=== PATIENT | female | born 1975 | race Caucasian/White ===

== ENCOUNTER 2019-09-28 18:21 | Emergency (ER) | payer OTHER, SELFPAY ==
--- NOTE | ~2019-09-28 | XR_ITS ---
XR ankle LT min 3V 09/28/2019 19:03 INDICATION: Left ankle pain and swelling PROCEDURE: 4 views left ankle COMPARISON: No prior studies for comparison. FINDINGS: There is a nondisplaced fracture, likely originating from the calcaneus. There is adjacent soft tissue swelling. No foreign bodies. IMPRESSION: 1: Acute nondisplaced fracture, likely originating from the calcaneus. Adjacent soft tissue swelling. Reviewed, dictated and finalized at location A.
--- NOTE | 2019-09-28 18:36 | ED.LOWEXIN ---
HPI - Extremity Injury (Lower) General Chief Complaint: Extremity Injury, Lower Stated Complaint: fell left ankle Time Seen by Provider: 09/28/19 18:36 Source: patient and RN notes reviewed History of Present Illness HPI Narrative: Patient is a 44-year-old female who presents the urgent care with complaints of left ankle pain and swelling. Patient states that her house is under construction and she was trying to walk after work this evening, stepping on a paint roller, and rolling her left ankle. Patient believes she broke something . Patient appears to be under the influence. Denies any use of pain medication prior to arrival. Patient is tearful. No other acute complaints. No acute distress noted. Patient had a plan of care. Related Data Home Medications Medication Instructions Recorded Confirmed alprazolam [Xanax] 1 mg PO TID 09/28/19 09/28/19 armodafinil 250 mg PO BID 09/28/19 09/28/19 bupropion HCl [Wellbutrin XL] 1 mg PO DAILY 09/28/19 09/28/19 norgestimate-ethinyl estradiol 1 tablet PO DAILY 09/28/19 09/28/19 [Tri-Sprintec (28)] Allergies Allergy/AdvReac Type Severity Reaction Status Date / Time acetaminophen Allergy Unknown Verified 09/28/19 18:53 HYDROCODONE BIT Allergy Unknown Uncoded 09/28/19 18:53 PENICILLIN Allergy Unknown Uncoded 09/28/19 18:53 Review of Systems Review of Systems: Narrative: CONSTITUTIONAL: Denies fever, chills, or sweats. EYES: Denies visual changes, redness, or discharge. ENT: Denies rhinorrhea, congestion, sore throat, or otalgia. CARDIOVASCULAR: Denies chest pain, palpitations, or edema. RESPIRATORY: Denies cough or dyspnea. GASTROINTESTINAL: Denies abdominal pain, nausea, vomiting, or diarrhea. GENITOURINARY: Denies dysuria or hematuria. SKIN: Denies rash or itching. MUSCULOSKELETAL: Reports of left ankle/foot pain due to fall NEUROLOGIC: Denies headache, numbness, or weakness. All other systems reviewed are negative, except as documented in HPI. [facility] Social History Social History Gender identity (if verbalized by the patient): Female Comments At the time of my signature, I reviewed and agree with the nursing past medical, surgical, social, and family history. There is no relevant family history pertinent to the patient complaint. Exam Narrative: Exam Narrative: GENERAL: This is a well-nourished, well-developed patient, in no apparent distress. HEAD: normocephalic, atraumatic. EYES: PERRL. Sclera clear/white. Vision is grossly intact. EARS: External ears normal NOSE: External nose normal with no obvious nasal discharge, nares without redness, no rhinorrhea. THROAT: Mucous membranes moist NECK: Neck supple SKIN: warm, intact with no suspicious lesions or rash, good texture and turgor. NEURO: awake, alert, and oriented to person, place and time. There were no obvious focal neurologic abnormalities. EXTREMITIES: Positive strong left pedal pulse with capillary refill less than 2 seconds. Very mild to absent edema noted on the dorsal anterior aspect of the malleolus without ecchymosis or erythema. No obvious deformity or fracture noted. Range of motion is limited, due to pain. Course Vital Signs Vital signs: Vital Signs Temperature 98.1 F 09/28/19 18:40 Pulse Rate 114 H 09/28/19 18:40 Respiratory Rate 18 09/28/19 18:40 Blood Pressure 141/97 H 09/28/19 18:40 Pulse Oximetry 98 09/28/19 18:40 Temperature 98.1 F 09/28/19 18:40 Pulse Rate 114 H 09/28/19 18:40 Respiratory Rate 18 09/28/19 18:40 Blood Pressure 141/97 H 09/28/19 18:40 Pulse Oximetry 98 09/28/19 18:40 Reviewed?patient is informed that they may have pre-hypertension or hypertension based on a blood pressure reading in the department. I recommend the patient call the primary care provider listed on their discharge instructions or a physician of their choice this week to arrange follow-up for further evaluation of possible pre-hypertension or hypertension. Procedures Ort
[2019-09-28 18:40] VITALS: BP 141/97; PULSE 114; RESP 18; TEMP 36.7; O2SAT 98
--- NOTE | 2019-09-28 20:02 | PC.NURSE ---
1836- Pt smells of alcohol.
== END 2019-09-28 20:03 | disposition home or self-care (01) ==
PROVIDERS: Emergency Provider Nurse Practitioner Family; PCP Family Medicine
DX: S92.002A Unspecified fracture of left calcaneus, initial encounter for closed fracture (principal); F41.9 Anxiety disorder, unspecified; F32.9 Major depressive disorder, single episode, unspecified; R03.0 Elevated blood-pressure reading, without diagnosis of hypertension; X50.9XXA Other and unspecified overexertion or strenuous movements or postures, initial encounter
CPT/HCPCS: 29515; 73610; 99204; G0463

== ENCOUNTER 2022-03-04 02:58 | Emergency (ER) | payer OTHER, SELFPAY ==
--- NOTE | ~2022-03-04 | CT_ITS ---
Clinical Indication: Chest pain, dissection CT angiogram of the Chest, Abdomen, and Pelvis with Contrast: Technique: Contiguous sections were acquired throughout the chest, abdomen, and pelvis after intraven ous administration of 100 cc of Omnipaque 350. 3-D reconstructed images were performed by the techno logist on the workstation. Dose reduction technique was used on this scan by utilizing automated expo sure control and iterative reconstruction technique. The dose-length product (DLP) was 548.13 mGy-cm. Findings: There is no evidence of any significant mediastinal, hilar or axillary lymphadenopathy. The mediastin al soft tissues appear normal. No aortic aneurysm or dissection in the chest. No large central pulmon darien embolus seen. There is no evidence of pleural or pericardial effusion. The lungs are clear. No pulmonary nodules or infiltrates are noted. The liver, spleen, pancreas, gallbladder, adrenals and kidneys are within normal limits. No evidence of abdominal aortic aneurysm or dissection. No lymphadenopathy. No bowel obstruction or definite bowel wall thickening. There is no evidence to suggest acute appendi citis. Urinary bladder is unremarkable. Small right ovarian cyst seen. No ascites. Impression: No significant abnormalities seen. No evidence of aortic aneurysm or dissection. Reviewed, dictated and finalized at [facility]. DYER Impression: No significant abnormalities seen. No evidence of aortic aneurysm or dissection .
[2022-03-04 02:52] VITALS: BP 136/110; PULSE 93; RESP 20; O2SAT 97
--- NOTE | 2022-03-04 03:01 | ECG_ITS ---
Measurements Intervals [place] Rate: 94 P: 69 [place]: 133 QRS: 76 QRSD: 94 T: 40 QT: 381 QTc: 478 Interpretive Statements SINUS RHYTHM POSSIBLE LEFT ATRIAL ENLARGEMENT DELAYED PRECORDIAL R/S TRANSITION BORDERLINE T WAVE ABNORMALITY- ANT/INF LEADS BASELINE WANDER- V4-V6 BORDERLINE ECG NO PREVIOUS ECG AVAILABLE FOR COMPARISON Electronically Signed On 03-04-2022 8:00:36 [employer] by Ki Griffin D.O.
--- NOTE | 2022-03-04 03:01 | ED.GENADULT ---
HPI - General Adult General Chief complaint: Chest Pain Stated complaint: chest pain History of Present Illness HPI narrative: 46-year-old female presenting to the emergency department for evaluation of multiple days of not feeling well. Patient states approximately 3 hours prior to arrival she had onset of lower abdominal pain with associated nausea and vomiting. Patient states after she had the nausea and vomiting she did develop some chest pain that is intermittent. Related Data Home Medications Medication Instructions Recorded Confirmed alprazolam 1 mg tablet (Xanax) 1 mg PO TID 09/28/19 09/28/19 armodafinil 250 mg tablet 250 mg PO BID 09/28/19 09/28/19 bupropion HCl 150 mg 24 hr tablet, 1 mg PO DAILY 09/28/19 09/28/19 extended release (Wellbutrin XL) norgestimate-ethinyl estradiol 1 tablet PO DAILY 09/28/19 09/28/19 0.18 mg/0.215mg/0.25mg-35 mcg(28)tablet (Tri-Sprintec (28)) Allergies Allergy/AdvReac Type Severity Reaction Status Date / Time acetaminophen Allergy Unknown Verified 09/28/19 18:53 HYDROCODONE BIT Allergy Unknown Uncoded 09/28/19 18:53 PENICILLIN Allergy Unknown Uncoded 09/28/19 18:53 Review of Systems Review of Systems: CONSTITUTIONAL: Denies fever, chills, or sweats. EYES: Denies visual changes, redness, or discharge. ENT: Denies rhinorrhea, congestion, sore throat, or otalgia. CARDIOVASCULAR: Denies chest pain, palpitations, or edema. RESPIRATORY: Denies cough or dyspnea. GASTROINTESTINAL: Denies abdominal pain, nausea, vomiting, or diarrhea. GENITOURINARY: Denies dysuria or hematuria. SKIN: Denies rash or itching. MUSCULOSKELETAL: Denies back pain, joint pain, or myalgia. NEUROLOGIC: Denies headache, numbness, or weakness. PMFSH Social History Social History Gender identity (if verbalized by the patient): Female Exam Narrative: APPEARANCE: Well appearing, no pain, no distress, well-nourished. HEAD: normocephalic, atraumatic. EYES: PERRLA/EOMI, conjunctivae clear. NOSE: Normal no drainage EARS:TMS clear with good light reflex. THROAT: Pharynx clear, no exudate. NECK: Supple. No adenopathy, no masses. RESPIRATORY: Airway patent, respirations nonlabored. Clear to auscultation bilaterally, no rales, rhonchi, wheezing. CARDIOVASCULAR: Regular rate and rhythm without murmurs rubs or gallops. ABDOMINAL: Soft, nontender, nondistended, normal bowel sounds MUSCULOSKELETAL: Moves all extremities. Strength/ROM intact, No edema, No calf tenderness. NEURO: Alert. Cranial nerves II through XII intact. Good gait. Good coordination SKIN: Warm, dry. Normal Color Course Course Emergency Course: Patient was describing chest pain and abdominal pain. CTA chest abdomen pelvis was ordered to rule out any form of dissection. Patient had negative serial troponins. Patient did feel improved with treatment. Differential diagnosis did include dissection, PE, ACS. Suspect enteritis is likely most likely etiology. Patient was educated on the results of the work-up and on reasons to return to the emergency room. All questions and concerns were addressed. Vital Signs Vital signs: Vital Signs Pulse Rate 93 03/04/22 02:52 Respiratory Rate 20 03/04/22 02:52 Blood Pressure 136/110 H 03/04/22 02:52 Pulse Oximetry 97 03/04/22 02:52 Oxygen Delivery Room Air 03/04/22 02:52 Pulse Rate 77 03/04/22 07:13 Respiratory Rate 14 03/04/22 07:13 Blood Pressure 112/80 03/04/22 07:13 Pulse Oximetry 98 03/04/22 07:13 Oxygen Delivery Room Air 03/04/22 02:52 Medical Decision Making Vital Signs Vital Signs: Vital Signs Pulse Rate 93 03/04/22 02:52 Respiratory Rate 20 03/04/22 02:52 Blood Pressure 136/110 H 03/04/22 02:52 Pulse Oximetry 97 03/04/22 02:52 Oxygen Delivery Room Air 03/04/22 02:52 Pulse Rate 77 03/04/22 07:13 Respiratory Rate 14 03/04/22 07:13 Blood Pressure 112/80 03/04/22 07:13 Pulse Oximetry 98 03/04/22 07:13 Oxygen Deliv
--- NOTE | 2022-03-04 03:21 | PC.NURSE ---
Pt reports sudden onset severe nausea and vomiting x2-3 hours. States that she also feels like the nausea is putting pressure on her heart. Immediately upon arrival to exam room pt requests to be taken to the bathroom to have a bowel movement. She is having diarrhea. She denies chest pain or abdominal pain at this time. She reports history of IBS and takes zofran on a daily basis . Pt believes she has the flu. She denies any other symptoms like fevers, cough, chills, sore throat, or runny nose.
[2022-03-04] MEDS: ONDANSETRON INJ 4 MG/2 ML VIAL (03:26)
[2022-03-04] MEDS: METOCLOPRAMIDE HCL INJ 10 MG/2 ML VIAL IV PUSH (03:38)
[2022-03-04] MEDS: SODIUM CHLORIDE 0.9% IV 1,000 ML 999 ML IV CONT ×2 (03:41→06:13)
[2022-03-04 03:48] LABS: Basophils Absolute Auto 0.1 K/mm3 (0.0-0.1); Basophils Percent Auto 0.5 % (0.2-1.2); Eosinophils Percent Auto 0.4 % (0-4.4); Hematocrit 42.5 % (37.0-47.0); Hemoglobin 14.2 g/dL (12.0-15.0); Immature Granulocyte Absolute 0.04 K/mm3 (0.00-0.031); Immature Granulocyte Percent A 0.4 % (0-0.5); Lymphocytes Absolute Auto 2.19 K/mm3 (0.9-3.2); Lymphocytes Percent Auto 20.8 % (18.3-44.2); Mean Corpuscular HGB Conc 33.4 g/dl (32-36); Mean Corpuscular Hemoglobin 31.5 pg (26-34); Mean Corpuscular Volume 94.2 fl (80-100); Monocytes Absolute Auto 0.4 K/mm3 (0.1-0.6); Monocytes Percent Auto 3.8 % (2.6-8.5); Neutrophils Absolute Auto 7.8 K/mm3 (1.3-6.7); Neutrophils Percent Auto 74.1 % (45.5-73.1); Platelet Count Result 246 k/mm3 (150-375); Red Blood Count 4.51 M/mm3 (4.2-5.4); Red Cell Distribution Width 13.3 % (11.5-14.5); White Blood Count 10.5 K/mm3 (4.5-10.0)
[2022-03-04 03:59] LABS: Lactic Acid Reflex 3.1 mmol/L (0.7-2.0)
[2022-03-04 04:00] LABS: INR 1.1; Prothrombin Time 13.3 Seconds (11.1-14.7)
[2022-03-04 04:12] LABS: Troponin I 0.018 ng/mL (0.000-0.034)
--- NOTE | 2022-03-04 04:21 | PC.NURSE ---
Nausea resolved at this time. Pt remains pain free. Reminded pt that we still need a urine sample. Instructed pt to use her call light when she thinks she can provide urine sample. Pt verbalized understanding.
[2022-03-04 04:22] LABS: Partial Thromboplastin Time 23.4 SECONDS (22.3-36.8)
[2022-03-04 04:28] LABS: Influenza A QL RT-PCR Negative (Negative); Influenza B QL RT-PCR Negative (Negative); RSV RNA, RT-PCR Negative (Negative); SARS-CoV-2 RNA PCR Negative
[2022-03-04 05:43] VITALS: BP 120/78; PULSE 80; RESP 16; O2SAT 98
[2022-03-04] MEDS: PANTOPRAZOLE SODIUM IV 40 MG VIAL IV PUSH (06:13)
[2022-03-04 06:38] LABS: Alanine Aminotransferase 24 U/L (6-35); Alkaline Phosphatase 98 U/L (38-126); Anion Gap 9 mmol/L (8-16); Aspartate Amino Transferase 33 U/L (14-36); Bilirubin,Total 0.3 mg/dL (0.2-1.3); Blood Urea Nitrogen 9 mg/dL (7-17); Carbon Dioxide 25 mmol/L (22-30); Chloride 106 mmol/L (98-107); Estimated CRCL calculation 89 ml/min; Estimated Glomerular Filt Rate > 60; Glucose 102 mg/dL (65-110); Potassium 4.6 mmol/L (3.4-5.0); Sodium 140 mmol/L (137-145)
[2022-03-04 06:46] LABS: Reflex Lactic Acid Yes or No Add Lactic
[2022-03-04 06:51] LABS: Troponin I < 0.012 ng/mL (0.000-0.034)
[2022-03-04 07:13] VITALS: BP 112/80; PULSE 77; RESP 14; O2SAT 98
[2022-03-04 07:23] LABS: Lactic Acid 1.9 mmol/L (0.7-2.0)
== END 2022-03-04 07:15 | disposition home or self-care (01) ==
PROVIDERS: Emergency Provider Emergency Medicine; PCP Family Medicine
DX: R11.2 Nausea with vomiting, unspecified (principal); R10.30 Lower abdominal pain, unspecified; R07.9 Chest pain, unspecified; Z20.822 Contact with and (suspected) exposure to COVID-19; R94.31 Abnormal electrocardiogram [ECG] [EKG]
CPT/HCPCS: 36415; 71275; 74174; 80053; 83605; 84484; 85025; 85610; 85730; 87637; 93005; 96361; 96374; 96375; 99284; C9113; J2405; J2765; J7030; Q9967